=== PATIENT | female | born 1965 | race African-American/Black ===

== ENCOUNTER 2017-11-24 20:14 | Emergency (ER) | payer OTHER ==
[2017-11-24] MEDS ORDERED: ASPIRIN 81 MG CHEWABLE TABLETS PO ONE (20:37)
--- NOTE | 2017-11-24 20:37 | PDOC ---
Rapid Medical Evaluation Time Seen by Provider: 11/24/17 20:31 Medical Evaluation: Allergies Allergy/AdvReac Type Severity Reaction Status Date / Time Penicillins Allergy Intermediate Hives Verified 03/29/14 11:59 11/24/17 20:32 I have performed a brief in-person evaluation of this patient. The patient presents with a chief complaint of: h chest pain x 1 week off and on , was seen at [facility] two weeks ago and dx with bronchitis, still coughing, reporst dyspnea on exertion, denies fever/chills/NVD, states "i had pleurisy a long time ago, it feels like that" I have ordered the following: cardiac workup The patient will proceed to the ED for further evaluation. Discharge Disposition - Diagnosis Chest pain - Referrals - Patient Instructions - Post Discharge Activity
[2017-11-24 20:41] VITALS: BP 140/88; PULSE 73; TEMP 97.8; BMI 29.9
[2017-11-24 21:20] LABS: BASO % 0.7 % (0-2.0); EOS % 1.8 % (0-4.5); HEMATOCRIT 32.8 % (32.4-45.2); HEMOGLOBIN 10.4 GM/dL (10.7-15.3); LYMPH % 18.3 % (8-40); MCH 24.8 pg (25.7-33.7); MCHC 31.8 g/dl (32.0-36.0); MEAN PLT VOLUME 8.8 fl (7.5-11.1); MONO % 6.8 % (3.8-10.2); NEUT % 72.4 % (42.8-82.8); PLATELET COUNT 355 K/MM3 (134-434); RDW 19.6 % (11.6-15.6); WHITE BLOOD COUNT 9.2 K/mm3 (4.0-10.0)
[2017-11-24 21:46] LABS: INR 1.08 (0.82-1.09); PROTHROMBIN TIME (PATIENT) 12.2 SEC (9.98-11.88)
[2017-11-24 21:57] LABS: ALBUMIN 3.4 g/dl (3.4-5.0); ANION GAP 5 (8-16); BILIRUBIN,TOTAL 0.2 mg/dL (0.2-1.0); BLOOD UREA NITROGEN 15 mg/dL (7-18); CHLORIDE 107 mmol/L (98-107); CO2 28 mmol/L (21-32); CREATININE 0.9 mg/dL (0.55-1.02); GLUCOSE,RANDOM 94 mg/dL (74-106); POTASSIUM 4.2 mmol/L (3.5-5.1); SGOT/AST 13 U/L (15-37); SGPT/ALT 19 U/L (12-78); SODIUM 140 mmol/L (136-145); TOT PROT 6.7 g/dl (6.4-8.2)
[2017-11-24 21:59] LABS: ALK PHOS 109 U/L (45-117)
--- NOTE | 2017-11-24 22:39 | PDOC ---
History of Present Illness - General Chief Complaint: Chest Pain Stated Complaint: CHEST PAIN Time Seen by Provider: 11/24/17 20:31 - History of Present Illness Initial Comments: 11/24/17 23:02 The patient is a 52 year old female with no significant PMH who presents for evaluation of chest pain. The patient reports a 1 week history of intermittent sharp right sided chest pain with some radiation to her back that worsens and improves with certain positions. She states that she took ibuprofen once which improved the pain but has not continued taking it. She reports that she was seen at [facility] 2 weeks ago and was treated for bronchitis with antibiotics with resolution in her symptoms. She denies fevers, chills, SOB, nausea, vomiting, abdominal pain, or changes with urination or bowel movements. Past History - Past Medical History Allergies/Adverse Reactions: Allergies Allergy/AdvReac Type Severity Reaction Status Date / Time Penicillins Allergy Intermediate Hives Verified 11/24/17 22:41 Home Medications: Ambulatory Orders Levothyroxine [Synthroid -] 150 mcg PO DAILY 11/24/17 Anemia: Yes Asthma: No Cancer: No Cardiac Disorders: No CVA: No COPD: No CHF: No Dementia: No Diabetes: No GI Disorders: No Disorders: No HTN: No Hypercholesterolemia: No Liver Disease: No Seizures: No Thyroid Disease: Yes - Suicide/Smoking/Psychosocial Hx Smoking History: Never smoked Have you smoked in the past 12 months: No Information on smoking cessation initiated: No Hx Alcohol Use: No Drug/Substance Use Hx: No Substance Use Type: None Hx Substance Use Treatment: No Review of Systems - Review of Systems Comments:: 11/24/17 23:16 Constitutional: No fevers, chills, fatigue, malaise HEENT: No Rhinorrhea, nasal congestion, visual changes Cardiovascular: Chest pain. No syncope, palpitations, lightheadedness Respiratory: No Cough, SOB, Hemoptysis, Gastrointestinal: No Abdominal pain, Nausea, Vomiting, Constipation, Diarrhea, Melena Genitourinary: No Dysuria, Frequency, Urgency, Hesitancy, Hematuria, Flank pain Musculoskeletal: No Myalgia, arthralgia Skin: No rashes, itching, bruising, pallor Neurologic: No Headache, Dizziness, Numbness, Weakness, or Tingling Psychiatric: No Hallucinations. No SI or HI *Physical Exam - Vital Signs Last Vital Signs Temp Pulse Resp BP Pulse Ox 97.8 F 73 20 140/88 98 11/24/17 20:38 11/24/17 20:38 11/24/17 20:38 11/24/17 20:38 11/24/17 20:38 - Physical Exam Comments: 11/24/17 23:16 General Appearance: Nourished. No Apparent Distress HEENT: EOMI, KIMBERLY. No Pharyngeal Erythema, Tonsillar Exudate, Tonsillar Erythema Neck: No Cervical Lymphadenopathy Respiratory/Chest: Lungs Clear, Normal Breath Sounds. No Crackles, Rales, Rhonchi, Wheezing Cardiovascular: Regular Rhythm, Regular Rate. Reproducible tenderness to palpation of the right sided chest. No Murmur, Gallops, Rubs Gastrointestinal/Abdominal: Normal Bowel Sounds, Soft. No Guarding, Rebound, Tenderness Musculoskeletal: No CVA Tenderness Extremity: Normal Capillary Refill Integumentary: Normal Color, Dry, Warm Neurologic: Fully Oriented, Alert, Normal Mood/Affect, Normal Response, Heart Score/ECG Review #1 ECG reviewed & interpreted by me at: 23:16 General ECG Interpretation: Sinus Rhythm, Normal Rate, Normal Intervals, No acute ischemic changes Compared to previous ECG there are: No significant change (03/29/14) ED Treatment Course - LABORATORY CBC & Chemistry Diagram: 11/24/17 21:09 11/24/17 21:09 - ADDITIONAL ORDERS Additional order review: Laboratory Results 11/24/17 11/24/17 11/24/17 21:09 21:09 21:09 PT with INR INR Sodium 140 Potassium 4.2 Chloride 107 Carbon Dioxide 28 Anion Gap 5 L BUN 15 Creatinine 0.9 Creat Clearance w eGFR > 60 Random Glucose 94 Calcium 8.0 L Magnesium 2.0 Total Bilirubin 0.2 AST 13 L ALT 19 Alkaline Phosphatase 109 Creatine Kinase 48 Troponin I < 0.02 B-Natriuretic Peptide 42.90 Total Protein 6.7 Albumin 3.4 Urine HCG, Qual Negative 11/24/17 21:09 PT with INR 12.20 H INR 1.08 Sodium Potassium Chloride Carbon Dioxide Anion Gap BUN Creatinine Creat Clearance w eGFR Random Glucose Calcium Magnesium Total Bilirubin AST ALT Alkaline Phosphatase Creatine Kinase Troponin I B-Natriuretic Peptide Total Protein Albumin Urine HCG, Qual 11/24/17 21:09 RBC 4.20 MCV 78.0 L MCHC 31.8 L RDW 19.6 H D MPV 8.8 Neutrophils % 72.4 Lymphocytes % 18.3 D Monocytes % 6.8 Eosinophils % 1.8 Basophils % 0.7 - Medications Given in the ED: ED Medications Discontinued Medications Generic Name Dose Route Start Last Admin Trade Name Sourav PRN Reason Stop Dose Admin Aspirin 162 mg 11/24/17 20:37 11/24/17 21:06 Asa - PO 11/24/17 20:38 162 mg ONCE ONE Administration Medical Decision Making - Medical Decision Making 11/24/17 23:17 The patient is a 52 year old female with no significant PMH who presents for evaluation of chest pain. Differential includes but is not limited to: ACS, Pneumonia, musculoskeletal, infectious, metabolic derangement. Given the patient's physical exam with reproducible and positional pain, it is likely her symptoms are musculoskeletal in nature. CBC, cmp, troponin, obtained in traige were unremarkable. We will obtain a chest plain film to evaluate for any other etiologies. We will treat with ibuprofen here in the ed and continue to monitor and reassess. 11/24/17 23:24 Chest plain film is unremarkable as preliminarily read by ER physician. The patient's symptoms are likely musculoskeletal in nature. We are comfortable discharging the patient home at this time with primary care provider follow up. We discussed the results and the plan with the patient who voiced understanding and is agreeable with the plan. *DC/Admit/Observation/Transfer Diagnosis at time of Disposition: Chest pain Qualifiers: Chest pain type: unspecified Qualified Code(s): R07.9 - Chest pain, unspecified - Discharge Dispostion Disposition: HOME Condition at time of disposition: Improved Admit: No - Referrals - Patient Instructions Printed Discharge Instructions: DI for Atypical Chest Pain Additional Instructions: Please return to the ER if you experience concerning or worsening symptoms including worsening pain, difficulty breathing, vomiting, or fevers. Your lab results and x-rays were normal here in the ER. Your symptoms are likely due to muscle pain and you may use ibuprofen or tylenol as needed at home to help manage your pain. Please call to schedule a follow up appointment with your primary care provider within 1 week to discuss your ER visit. - Post Discharge Activity
[2017-11-24] MEDS ORDERED: IBUPROFEN 600 MG TABLET (FP) PO ONE ×2 (22:44→23:05)
[2017-11-24] MEDS ORDERED: ACETAMINOPHEN 325 MG TABLET (FP) ONE (23:06)
--- NOTE | 2017-11-24 23:26 | PDOC ---
Attending Attestation - Resident Resident Name: Ismael Olsen - ED Attending Attestation I have performed the following: I have examined & evaluated the patient, The case was reviewed & discussed with the resident, I agree w/resident's findings & plan, Exceptions are as noted - HPI HPI: 11/24/17 23:23 52 female has had pleruetic chest pain for past week -she recently had bronchitis -no shortness of breath ,no fever ,no LE edema ekg nsr with no evidence of acute ischemia,there were no changes since her prior ekg neg trop cbc and chemistries essentially unremarkable cxr napd - Physicial Exam PE: 11/24/17 23:26 wnwd 52 yo female in no acute distress has had a week of right sided musculoskeletal pain, pain was in her right upper chest head - ncat neck supple,no bruits,no jvd lungs cta b/l cvs [id number] abd nontender extremities no edema skin warm and dry neuro axox3 ,no focal neuro deficits - Medical Decision Making 11/24/17 23:43 IMP musculoskeletal pain
--- NOTE | 2017-11-25 08:54 | EKG ---
Test Reason : Blood Pressure : / mmHG Vent. Rate : 064 BPM Atrial Rate : 064 BPM P-R Int : 150 ms QRS Dur : 088 ms QT Int : 388 ms P-R-T Axes : 038 004 -09 degrees QTc Int : 400 ms NORMAL SINUS RHYTHM MINIMAL VOLTAGE CRITERIA FOR LVH, MAY BE NORMAL VARIANT BORDERLINE ECG WHEN COMPARED WITH ECG OF 29-MAR-2014 10:49, NO SIGNIFICANT CHANGE WAS FOUND Confirmed by Duc Vasquez MD ([id number]) on 11/25/2017 8:53:36 AM Referred By: Confirmed By:Duc Vasquez MD
== END 2017-11-24 23:55 | disposition home or self-care (01) ==
LOC: JER 20:14
DX: R07.9 Chest pain, unspecified (principal)
CPT/HCPCS: 36415; 71046-TC-FY; 80053; 82550; 83735; 83880; 84484; 84703; 85025; 85610; 93005; 93010; 99282-25